=== PATIENT | male | born 1960 | race Caucasian/White ===

== ENCOUNTER → 2023-10-25 10:21 | Outpatient (REF) | payer OTHER, SELFPAY | LOC: RAD 10:21 | PROVIDERS: ATTENDING PHYSICIAN Physician Assistant Medical | DX: R60.0 Localized edema (principal) | CPT/HCPCS: 93970 ==

== ENCOUNTER 2025-01-16 16:50 | Inpatient (IN) | payer BC, SELFPAY ==
[2025-01-16] VITALS (9 sets, daily range): BP systolic 97–121; BP diastolic 67–93; BMI 28.0; BMI 28.7
[2025-01-16] MEDS: NSS 1000 IV ×2 (11:19→19:32)
[2025-01-16 11:24] LABS: % Basophils 0.4 % (0-2); % Eosinophils 1.2 % (0-6); % Immature Granulocytes 0.3 % (0-0.5); % Lymphocytes 22.2 % (20.5-51.1); % Monocytes 17.8 % (1.7-9.3); % Neutrophils 58.1 % (42.2-75.2); Absolute Eosinophils 0.1 10^3/uL (0-0.7); Absolute Lymphocytes 1.5 10^3/uL (1.2-3.4); Absolute Monocytes 1.2 10^3/uL (0.1-0.6); Absolute Neutrophils 3.9 10^3/uL (1.4-6.5); Hematocrit 56.5 % (39.0-52.0); Hemoglobin 19.5 g/dL (13.0-18.0); Mean Corp Hgb Conc. 34.5 g/dL (33.0-37.0); Mean Corpuscular Hgb 29.3 pg (27.0-31.0); Mean Corpuscular Volume 84.8 fL (80.0-94.0); Mean Platelet Volume 9.7 fL (7.4-10.4); Nucleated Red Blood Cells % 0 % (-); Platelet Count 180 10^3/uL (130-400); Red Blood Cell Count 6.66 10^6/uL (4.70-6.10); Red Cell Dist. Width 15.1 % (11.5-14.5); White Blood Cell Count 6.8 10^3/uL (4.8-10.8)
[2025-01-16 11:51] LABS: ALT (SGPT) 27 U/L (0-50); AST (SGOT) 26 U/L (17-59); Albumin 4.6 g/dl (3.5-5.0); Alkaline Phosphatase 52 U/L (38-126); Blood Urea Nitrogen 34 mg/dl (9-20); Calcium 8.9 mg/dl (8.4-10.2); Carbon Dioxide 21 mmol/L (22-30); Chloride 102 mmol/L (98-107); Estimated Creatinine Clearance 36 ml/min; Glucose 119 mg/dl (70-99); Lipase 149 U/L (23-300); Magnesium 2.4 mg/dl (1.6-2.3); Potassium 3.8 mmol/L (3.5-5.1); Sodium 138 mmol/L (135-145); Total Bilirubin 1.1 mg/dl (0.2-1.3); Total Protein 7.9 g/dl (6.3-8.2)
[2025-01-16] MEDS: OMNIPAQUE 50 ML PO (12:18)
--- NOTE | 2025-01-16 12:23 | ED.GENMED ---
History of Present Illness
<Karissa Ruiz PA-C - Last Filed: 01/16/25 14:45>
General
Chief Complaint: Abdominal Symptoms
Source: patient
Exam Limitations: none
Time Seen by Provider: 01/16/25 10:30
Nursing documentation reviewed up to this point in time: agreed with
History of Present Illness
History of Present Illness:
64 Y/O M with h/o colon perforation during colnooscopy years ago outside faciliyt s/p resection partially of colon
chronic lloose bowels
TBI
here with diarrhea significant x 2.5 days
with wtaery stools every 15-30 minutes, nonbloody
with some abdominal cramping prior to episodes
he also had fever to 102
treated last with tylenol yesterday
no fever today
he watches his grandkids who also had GI illness about 10 days ago but he isn't sure what
he has not had recent abx, recent travel
pt started noticing his urine is dark today and looks slightly bloody
he has been able to drink fludis but when he does, he has to have diarrhea
Past History
<CHAD Joshi Last Filed: 01/16/25 14:45>
Past History
ED Past Medical History: HTN, Other (herniated lower back discs, Renal Colic) and Other (Patient had 'some kind of neurological event' in 2011 and was admitted to the hospital with MRI carotid Doppler, etc. and it was never figured out exactly what
happened. Has had no neurological problems since); Negative Asthma, Hypercholesterolemia or NIDDM
ED Past Surgical History: Bowel resection (after perforation from colonoscopy), Orthopedic (right bicep tendon repair) and Other (bilateral inguinal hernia repair)
Social History
Tobacco: Non-smoker
Alcohol: Occasional
Personal:
Living: alone
Employment: Employed
Review of Systems
<Karissa Ruiz PA-C - Last Filed: 01/16/25 14:45>
Review of Systems
Allergies reviewed?: Yes
All Other Systems: Not applicable
Phy Exam
<Karissa Ruiz PA-C - Last Filed: 01/16/25 14:45>
Physical Exam
Physical Exam:
GENERAL: Alert , in no apparent distress, nonotoxic
EYE: pupils equal and reactive
NECK: Supple
ENT: o/p clr dry mouth
CARDIAC: Regular rate and rhythm .
LUNGS: Clear breath sounds bilaterally, no acute respiratory distress, no wheezes/rales/rhonchi
ABDOMEN: Soft, without focal tenderness, no r/g, no cvat, normal bowel sounds
NEUROLOGICAL: Alert and oriented, no focal neuro deficits
SKIN: Warm and dry, skin intact.
MUSCULOSKELETAL: No edema, well perfused. neg dawson's sign
PSYCH: Normal and appropriate interaction.
Course
<Karissa Ruiz PA-C - Last Filed: 01/16/25 14:45>
Orders/Labs/Results
Orders:
Orders
01/16/25 11:04
0.9% Sodium Chloride 1000 ml [Nss] 1,000 ml IV BOLUS
01/16/25 11:11
Complete Blood Count/With Diff Urgent
Comprehensive Metabolic Panel Urgent
Lipase Urgent
Magnesium Urgent
01/16/25 12:08
Iohexol [Omnipaque] See Protocol PO NOW STA
01/16/25 12:09
CT Abd/pel (oral only)-DH Only Urgent
Comment:
Reason For Exam: severe diarrhea, s/p resection years ago
01/16/25 12:20
Stool Culture Urgent
VIVIAN Source: Feces/Stool
Specimen Description:
Date Specimen was Collected: 01/16/25
Time Specimen was Collected: 12:19
01/16/25 12:21
Norovirus by PCR Urgent
VIVIAN Source: Feces/Stool
Specimen Description:
Date Specimen was Collected: 01/16/25
Time Specimen was Collected: 12:19
STOOL [C difficile Antigen & Toxins] Urgent
VIVIAN Source: Feces/Stool
Specimen Description:
Date Specimen was Collected: 01/16/25
Time Specimen was Collected: 12:19
01/16/25 12:51
Urinalysis Reflex To Culture Urgent
Date Specimen was Collected: 01/16/25
Time Specimen was Collected: 12:49
Urine Microscopic Reflex Cult Urgent
Urine Culture Urgent
VIVIAN Source: U
Specimen Description:
Obtained by: Random
Date Specimen was Collected: 01/16/25
Time Specimen was Collected: 12:49
Abnormal Lab Results
01/16/25 01/16/25
11:11 12:51
RBC 6.66 H 10^6/uL
(4.70-6.10)
Hgb 19.5 H g/dL
(13.0-18.0)
Hct 56.5 H %
(39.0-52.0)
RDW 15.1 H %
(11.5-14.5)
Absolute Monos (auto) 1.2 H 10^3/uL
(0.1-0.6)
Monocytes % 17.8 H %
(1.7-9.3)
Carbon Dioxide 21 L mmol/L
(22-30)
BUN 34 H mg/dl
(9-20)
Creatinine 2.1 H mg/dL
(0.7-1.3)
Glucose 119 H mg/dl
(70-99)
Magnesium 2.4 H mg/dl
(1.6-2.3)
Ur Occult Blood Reflex 4+ A
(Negative)
Leukocyte Esterase Rfl 2+ A
(Negative)
Urine RBC 7-10 A /HPF
(0-2)
Urine Bacteria (Reflex) Few A
(Negative)
Urine Albumin (Reflex) 2+ A
(Neg - Trace)
01/16/25 11:11
01/16/25 11:11
Vital Signs
Initial and Last Documented VS:
Initial Vital Signs
Temp Pulse Resp BP Pulse Ox
97.8 F 80 18 115/73 94
01/16/25 09:52 01/16/25 09:52 01/16/25 09:52 01/16/25 09:52 01/16/25 09:52
Last Documented Vital Signs
Temp Pulse Resp BP Pulse Ox
97.8 F 79 25 120/85 95
01/16/25 09:52 01/16/25 14:30 01/16/25 14:30 01/16/25 14:00 01/16/25 14:00
<Manas Michaud PA-C - Last Filed: 01/16/25 15:49>
Orders/Labs/Results
Orders:
Orders
01/16/25 11:04
0.9% Sodium Chloride 1000 ml [Nss] 1,000 ml IV BOLUS
01/16/25 11:11
Complete Blood Count/With Diff Urgent
Comprehensive Metabolic Panel Urgent
Lipase Urgent
Magnesium Urgent
01/16/25 12:08
Iohexol [Omnipaque] See Protocol PO NOW STA
01/16/25 12:09
CT Abd/pel (oral only)-[facility] Only Urgent
Comment:
Reason For Exam: severe diarrhea, s/p resection years ago
01/16/25 12:20
Stool Culture Urgent
VIVIAN Source: Feces/Stool
Specimen Description:
Date Specimen was Collected: 01/16/25
Time Specimen was Collected: 12:19
01/16/25 12:21
Norovirus by PCR Urgent
VIVIAN Source: Feces/Stool
Specimen Description:
Date Specimen was Collected: 01/16/25
Time Specimen was Collected: 12:19
STOOL [C difficile Antigen & Toxins] Urgent
VIVIAN Source: Feces/Stool
Specimen Description:
Date Specimen was Collected: 01/16/25
Time Specimen was Collected: 12:19
01/16/25 12:51
Urinalysis Reflex To Culture Urgent
Date Specimen was Collected: 01/16/25
Time Specimen was Collected: 12:49
Urine Microscopic Reflex Cult Urgent
Urine Culture Urgent
VIVIAN Source: U
Specimen Description:
Obtained by: Random
Date Specimen was Collected: 01/16/25
Time Specimen was Collected: 12:49
Abnormal Lab Results
01/16/25 01/16/25
11:11 12:51
RBC 6.66 H 10^6/uL
(4.70-6.10)
Hgb 19.5 H g/dL
(13.0-18.0)
Hct 56.5 H %
(39.0-52.0)
RDW 15.1 H %
(11.5-14.5)
Absolute Monos (auto) 1.2 H 10^3/uL
(0.1-0.6)
Monocytes % 17.8 H %
(1.7-9.3)
Carbon Dioxide 21 L mmol/L
(22-30)
BUN 34 H mg/dl
(9-20)
Creatinine 2.1 H mg/dL
(0.7-1.3)
Glucose 119 H mg/dl
(70-99)
Magnesium 2.4 H mg/dl
(1.6-2.3)
Ur Occult Blood Reflex 4+ A
(Negative)
Leukocyte Esterase Rfl 2+ A
(Negative)
Urine RBC 7-10 A /HPF
(0-2)
Urine Bacteria (Reflex) Few A
(Negative)
Urine Albumin (Reflex) 2+ A
(Neg - Trace)
01/16/25 11:11
01/16/25 11:11
Vital Signs
Initial and Last Documented VS:
Initial Vital Signs
Temp Pulse Resp BP Pulse Ox
97.8 F 80 18 115/73 94
01/16/25 09:52 01/16/25 09:52 01/16/25 09:52 01/16/25 09:52 01/16/25 09:52
Last Documented Vital Signs
Temp Pulse Resp BP Pulse Ox
97.8 F 79 25 120/85 95
01/16/25 09:52 01/16/25 14:30 01/16/25 14:30 01/16/25 14:00 01/16/25 14:00
<Karissa Ruiz PA-C - Last Filed: 01/16/25 14:45>
MDM/Problems Addressed
Differential Diagnosis Includes:
gastroenteritis, colitis, uti, dehydartion
MDM/Problems Addressed:
64-year-old male status post a previous partial colon resection secondary to a perforated colon from occult colonoscopy presents with 2-1/2 days of loose bowels, frequent diarrhea, moderate volume, nonbloody every 15 to 20 minutes, specifically
after drinking liquids. He feels dehydrated and slightly weak. He gets cramps in his abdomen before he has to move his bowels that resolved. He did have a fever 102. There has been no recent travel or antibiotics. His grandkids were sick with a
GI illness just less than 2 weeks ago and he watches them.
Today he noticed some gross hematuria/his urine was dark in color.
On exam the patient is nontoxic-appearing, appears dehydrated, has no focal tenderness, midline vertical abdominal incision is well-healed.
Laboratory findings positive for an SCOTT, he appears hemoconcentrated
Urine positive for RBCs and blood
Pending CT scan, likely will require IV hydration and admission if the patient agrees
<Manas Michaud PA-C - Last Filed: 01/16/25 15:49>
*Critical Care Note
Total Time (30-74mins, 75-104mins- exclusive of procedures): Not Applicable
<Manas Michaud PA-C - Last Filed: 01/16/25 15:49>
Update Note
Update Note:
Received care of patient pending CT scan. CT scan negative for acute findings. Patient is hemoconcentrated. His creatinine is 2.1 and he has had at least several episodes of diarrhea while here. Given ongoing diarrhea hemoconcentration and
creatinine elevation will keep in hospital for acute dehydration.
ED Attending Note
<Karissa Ruiz PA-C - Last Filed: 01/16/25 14:45>
-
Portions of this chart may have been created with voice recognition software.� Occasional wrong word or��sound alike� substitutions may have occurred due to the inherent limitations of voice recognition software.
Discharge Plan
Departure
Patient Disposition: Admit
Date of Disposition: 01/16/25
Time of Disposition: 15:49
Presentation/result/management discussed w/ accepting MD/DO: Hospitalist
Discharge Problem:
Acute dehydration
Prescriptions:
No Action
omeprazole magnesium [Prilosec OTC] 20 MG tablet,delayed release (DR/EC)
20 mg PO DAILY
testosterone [AndroGel] 75 GM gel in metered-dose pump
2 pump topical DAILY
Multivitamin
1 tab PO DAILY
tamsulosin 0.4 MG capsule
0.4 mg PO HS
hydrochlorothiazide 25 MG tablet
25 mg PO DAILY
Allopurinol
100 mg PO DAILY
tadalafil [Cialis] 10 MG tablet
10 mg PO HS
meloxicam [Mobic] 15 MG tablet
15 mg PO HS
bismuth subsalicylate [[place] Bismuth] 1 TABLET tablet,chewable
2 tab PO TIDPRN PRN (Reason: diarrhea)
phenazopyridine 200 MG tablet
200 mg PO BID 4 Days Qty: 8 0RF
sulfamethoxazole-trimethoprim 1 TABLET tablet
1 tab PO BID 4 Days Qty: 8 0RF
Rx Instructions:
start Bactrim 09/26/21
Referrals:
Kilo Lewis, DO [Family Provider] -
Interventions
Interventions:
*Risk Screen - Suicide Last Done: 01/16/25 09:52
*General Assessment Last Done: 01/16/25 09:52
*Neglect/Abuse Screening Last Done: 01/16/25 09:52
*ED- Fall Risk Assessment Last Done: 01/16/25 11:24
*ED COVID-19 Vaccine History Last Done: 01/16/25 11:24
OL-Ybnbdr-Sbkqwzelyc Assessment Last Done: 01/16/25 11:24
Discharge Date and Time
Print Language: [place]
[2025-01-16 13:18] LABS: Urine Albumin 2+ (Neg - Trace); Urine Bilirubin Negative (Negative); Urine Character Clear (Clear); Urine Color Amber; Urine Glucose Negative (Negative); Urine Ketone Negative (Negative); Urine Leukocyte 2+ (Negative); Urine Nitrite Negative (Negative); Urine Occult Blood 4+ (Negative); Urine Urobilinogen Negative (Neg - 1+)
[2025-01-16 14:19] LABS: Urine Bacteria Few (Negative)
--- NOTE | 2025-01-16 15:50 | HPS.HSE ---
Family Physician
-
Family Physician: Kilo Lewis
Chief Complaint
-
watery diarrhea
History of Present Illness
64 Y/O M with h/o colon perforation during colonoscopy years ago outside faciliyt s/p resection partially of colon. GOUT, HTN, GERD presented to us with loose watery stool since Tuesday night. patient stated epigastric pain. he had fever of 102 since
Tuesday to Tuesday night. Patient denied headache, dizzy. Patient stated some chest pressure. Denied short of breath. Denied nausea or vomiting. Patient stated dark urine. Stated some dysuria. Denied hematuria. Patient denied any recent
travel. He denied any sick contact. Patient denied any antibiotics.
CT abdomen pelvis with no acute findings. Norovirus negative. Stool C. difficile antigen positive, toxin negative. stool culture sent from ER. received fluids.
Medical History
Past Medical History
Past Medical History: Reports Other
Additional Past Medical History:
Hypertension, BPH, gout, kidney stone, bladder calculi,
Past Surgical History: Reports Other
Additional Past Surgical History:
bowel resection
b/l inguinal hernia surgery
bicep tendon repair
carpel tunnel release
kidney stone extraction
TURP
Social History
Tobacco: Non-smoker
Alcohol: Occasional
Drug: None
Personal: Single
Living: Alone
Family History
Family History: Not pertinent
Allergies / Home Medications
Allergies reflects when Allergies were last updated in get[facility].
Home Medications with original date entered in get[facility]
Allergy/Medication List:
Allergies
Allergy/AdvReac Type Severity Reaction Status Date / Time
honey Allergy Anaphylaxis Verified 01/16/25 09:52
lisinopril Allergy bells Verified 01/16/25 09:52
palsy like
reaction
demeclocycline AdvReac Vomiting Verified 01/16/25 09:52
[From Declomycin]
Home Medications
Multivitamin 1 tab PO DAILY Supplement 03/07/18
omeprazole magnesium 20 mg tablet,delayed release (Prilosec OTC) 20 mg PO DAILY Urinary issue 03/07/18
testosterone (AndroGel) 2 pump topical DAILY Hormonal agent 03/07/18
hydrochlorothiazide 25 mg tablet 25 mg PO DAILY Fluid retention/Swelling 09/19/19
tamsulosin 0.4 mg capsule 0.4 mg PO HS Urinary issue 09/19/19
Allopurinol 100 mg PO DAILY 09/22/21
bismuth subsalicylate 262 mg chewable tablet ([place] Bismuth) 2 tab PO TIDPRN PRN diarrhea 09/22/21
meloxicam 15 mg tablet (Mobic) 15 mg PO HS 09/22/21
tadalafil 10 mg tablet (Cialis) 10 mg PO HS 09/22/21
phenazopyridine 200 mg tablet 200 mg PO BID 4 days #8 tabs 09/25/21
sulfamethoxazole 800 mg-trimethoprim 160 mg tablet 1 tab PO BID 4 days #8 tabs 09/25/21
Review of Systems
-
Constitutional: Reports No Symptoms
EENT: Reports No Symptoms
Respiratory: Reports No Symptoms
Cardiac: Reports No Symptoms
Abdomen/GI: Reports Abdominal Pain and Diarrhea
: Reports Dark Urine
Musculoskeletal: Reports No Symptoms
Skin: Reports No Symptoms
Neurological: Reports No Symptoms
Endocrine: Reports No Symptoms
Hematologic/Lymphatic: Reports No Symptoms
Psych: Reports No Symptoms
Physical Exam
Vital Signs
Vital Signs
Temp Pulse Resp BP Pulse Ox
97.8 F 79 25 120/85 95
01/16/25 09:52 01/16/25 14:30 01/16/25 14:30 01/16/25 14:00 01/16/25 14:00
Physical Exam
General: Well Developed, Well Nourished and No Apparent Distress
HEENT: NormoCephalic, Moist mucous membranes and Atraumatic
Respiratory: Clear
Cardiac: S1/S2 and Regular Rhythm; No Murmur or Rub
GI: Soft, Non Tender, Non Distended and Normal Bowel Sounds; No Organomegaly
Rectal: Deferred by Provider
Musculoskeletal: No Clubbing, No Cyanosis and No Edema
Skin: No Rash
Neuro: AO x 3 and Nonfocal/grossly intact
Psych: Calm
Laboratory Results
-
01/16/25 11:11
01/16/25 11:11
Laboratory Results
Total Bilirubin 1.1 mg/dl (0.2-1.3) 01/16/25 11:11
AST 26 U/L (17-59) 01/16/25 11:11
ALT 27 U/L (0-50) 01/16/25 11:11
Alkaline Phosphatase 52 U/L (38-126) 01/16/25 11:11
Lipase 149 U/L (23-300) 01/16/25 11:11
Data Reviewed
-
CT Scan: Report Reviewed by me
Lab Data: Labs Reviewed by me
Impression/Plan
-
# Acute dehydration with ongoing diarrhea likely C diff
# Acute kidney injury likely from dehydration
- Creatinine 2.1
- norovirus negative
-C diff antigen positive, toxin negative
- CT abdomen pelvis with impression of multiple low-attenuation foci in the liver with Hounsfield units confirming cysts. There is diverticulosis but no evidence of diverticulitis
-oral vanco and Flagyl
- Tylenol as needed for fever or pain
# Hemoconcentration likely from dehydration
- Hemoglobin 19
- Fluids continued
- CBC in a.m.
# Gout
- Allopurinol continued
# Essential hypertension
- Hold hydrochlorothiazide due to SCOTT
# GERD
- PPI
# BPH
- Flomax
# DVT prophylaxis
- SCDs
# CODE STATUS
- Full code
--- NOTE | 2025-01-16 16:30 | W.PN.UPDATE ---
Update Note
Progress Note Update
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
64-year-old male past medical history of hypertension, herniated disc, colon perforation status post bowel resection, GERD, BPH, uric acid nephrolithiasis on allopurinol, presenting with severe watery diarrhea with blood for 3 days, abdominal
cramping.� Fever 102.� No recent antibiotics or travel.� Urine is bloody as well without retention or clots though he has had this before secondary to renal stones and bladder stone.� No urinary burning or frequency.� No flank pain.
Never had C. difficile before.
Labs unremarkable apart from creatinine of 2.1.� CT abdomen pelvis shows multiple low-attenuation foci in the liver confirming cysts.� Urinalysis shows hematuria but findings not particularly suggestive of UTI.
Patient is positive for C. difficile antigen but toxin negative.
Patient with likely C. difficile colitis given bloody diarrhea.� No clear triggers such as antibiotic use or immunosuppression.� Also with SCOTT secondary to hypovolemia and hematuria likely due to BPH/history of nephrolithiasis.
N.p.o., IV fluids, oral vancomycin/IV Flagyl.� Stool culture pending.� Outpatient follow-up with urology.
[2025-01-16] MEDS: COREG 25 MG PO (19:32)
[2025-01-16] MEDS: FLAGYL 500 MG 100 IV (19:41)
[2025-01-16] MEDS: FIRVANQ 250 MG PO (19:41)
[2025-01-16] MEDS: FLOMAX 0.4 MG PO (21:15)
[2025-01-17] MEDS: FIRVANQ 250 MG PO ×2 (00:54→06:33)
[2025-01-17] MEDS: NSS 1000 IV ×3 (00:55→21:53)
[2025-01-17] MEDS: FLAGYL 500 MG 100 IV (03:54)
[2025-01-17 07:31] LABS: Hematocrit 50.9 % (39.0-52.0); Hemoglobin 17.6 g/dL (13.0-18.0); Mean Corp Hgb Conc. 34.6 g/dL (33.0-37.0); Mean Corpuscular Hgb 29.3 pg (27.0-31.0); Mean Corpuscular Volume 84.8 fL (80.0-94.0); Mean Platelet Volume 9.5 fL (7.4-10.4); Platelet Count 172 10^3/uL (130-400); Red Cell Dist. Width 14.3 % (11.5-14.5); White Blood Cell Count 5.7 10^3/uL (4.8-10.8)
[2025-01-17 07:54] LABS: Blood Urea Nitrogen 38 mg/dl (9-20); Calcium 7.6 mg/dl (8.4-10.2); Carbon Dioxide 20 mmol/L (22-30); Chloride 107 mmol/L (98-107); Estimated Creatinine Clearance 47 ml/min; Glucose 76 mg/dl (70-99); Potassium 3.7 mmol/L (3.5-5.1); Sodium 138 mmol/L (135-145); eGFR 47.82
[2025-01-17 08:00] VITALS: BP 114/68
[2025-01-17] MEDS: COREG 25 MG PO ×2 (08:23→20:23)
[2025-01-17] MEDS: ZYLOPRIM 100 MG PO (08:23)
[2025-01-17] MEDS: PROTONIX 40 MG PO (08:23)
--- NOTE | 2025-01-17 09:04 | W.PN.HOSP.TC ---
Addendum entered and electronically signed by Balbir Cervantes MD 01/17/25 23:38:
Attending Addendum-
I saw and evaluated the patient. I reviewed the resident�s note and agree with findings and plan as documented in the resident�s note. Sub: No diarrhea today. States its improved after starting po vanco. Denies dark or BRBPR. Has had some hematuria
but non today. Full 12 point ROS reviewed and negative except as documented Exam: Vitals reviewed in chart GEN-NAD heart RRR lungs clear abd soft NT ND pos BS LE no edema
Plan:
# Acute dehydration with ongoing diarrhea possibly C diff
# Acute kidney injury likely from dehydration
- Creatinine 2.1->1.6
- cont IVF
- norovirus negative
- stool cx- neg thus far
- C diff antigen positive, toxin negative - had diarrhea and decreased after start of PO vanco
- CT abdomen pelvis with impression of multiple low-attenuation foci in the liver with Hounsfield units confirming cysts. There is diverticulosis but no evidence of diverticulitis
- DC IV flagyl decrease po vanco
- will continue 10 day course of PO vanco
- Tylenol as needed for fever or pain
- advance diet
# Hemoconcentration likely from dehydration
- Fluids continued
- CBC in a.m.
# Hematuria
- will need follow up as OP with uro
# Gout
- Allopurinol continued
# Essential hypertension
- Hold hydrochlorothiazide due to dehydration
# GERD
- PPI possible DC
# BPH
- Flomax
# DVT prophylaxis
- SCDs
# CODE STATUS
- Full code-> DNR
Dispo DC in am
ACP
Patient consented to discuss, was alone, time spent explanation of advance directives, changes in health status, patient�s health care wishes if the patient becomes unable to make health decisions, goals of care, code status, and prognosis code
status changed to DNR after discussion- 16 minutes
Time spent coordinating care, review of plan of care with resident, personally reviewed previous records in EMR, med rec, labs, radiology, d/w nursing, family total time documented is exclusive of any additional time listed that was spent in advance
care planning discussion -�52 minutes
Original Note:
Today's Communication/Plan
-
Follow blood culture urine culture
Trend serum creatinine
Trend hemoglobin and hematocrit
Send LDH, peripheral blood smear, reticulocyte count
Assessment / Plan
Assessment / Plan
Impression
Patient is a 64-year-old male with past medical history of bowel resection for perforated colon secondary to colonoscopy, hypertension, gout, GERD, kidney and bladder stones who presented to emergency with complaint of watery stools for last 3 days.
1 episode of fever. Admitted with working diagnosis of dehydration secondary to diarrhea.
Assessment/plan
1. Diarrhea
Infectious versus toxin mediated versus hemolytic uremic syndrome
Grandchildren-sick contacts
Had dinner outside-([employer]) prior to start of diarrhea
No recent hospitalization, no recent antibiotics, no recent travel
On IV fluids -no signs of dehydration today
Follow blood culture, and stool culture
Continue oral vancomycin
Advance diet as tolerated
2. SCOTT secondary to dehydration/HUS
On admission, patient's serum creatinine 2
On IV fluids-serum creatinine trending down
Keep hydrating, trend serum creatinine
3. Polycythemia
On admission patient had a hemoglobin of 19.5 with a hematocrit of 56.5 suggesting dehydration
Improved -downtrending with hydration
Continue to monitor
4. Hematuria?
Patient had anastacio-colored urine with 7-10 RBCs
2+ albumin in urine
Platelet count is downtrending
Elevated serum creatinine
Evaluate for hemolysis with LDH, peripheral blood smear, reticulocyte count
Other medical conditions
Essential hypertension-hold hydrochlorothiazide, continue carvedilol
Gout-continue allopurinol
GERD-continue PPI
BPH-continue home meds as able
DVT prophylaxis-SCD
Code status-DNR
Anticipated Discharge: 24 - 48 hours
Subjective/Interval History
-
Date of Service: January 17, 2025
Patient feeling fine,Last bowel movement yesterday, has remained afebrile over the last 3 days
Objective Data
-
Labs:
Laboratory Results
01/17/25
06:35
WBC 5.7
Hgb 17.6
Hct 50.9
Plt Count 172
Sodium 138
Potassium 3.7
Chloride 107
Carbon Dioxide 20 L
BUN 38 H
Creatinine 1.6 H
Glucose 76
Calcium 7.6 L
Vital Signs:
Vital Signs
Temp Pulse Resp BP Pulse Ox
98 F 69 16 114/68 95
01/17/25 08:00 01/17/25 08:23 01/17/25 08:00 01/17/25 08:23 01/17/25 08:00
I&O
01/16/25 01/17/25 01/18/25
06:59 06:59 06:59
Intake Total 1325 / 1325
Balance 1325 / 1325
Review of Systems
-
Constitutional: Reports Weight Loss (13 pounds)
Abdomen/GI: Reports Diarrhea
Genitourinary: Reports Bleeding
Musculoskeletal: Reports Joint Pain and Muscle Pain
Physical Exam
-
General: No Apparent Distress, Comfortable and Conversant
HEENT: Normocephalic, Atraumatic and Moist Mucous Membranes
Respiratory: Clear to Auscultation and Other (No wheezes,rales or ronchi)
Cardiac: Regular Rhythm, S1/S2 and Other (No murmurs rubs or gallops)
GI: Soft, Nontender, Nondistended and Normal Bowel Sounds
Musculoskeletal: No Clubbing, No Cyanosis and No Edema
Skin: Warm and Dry
Neuro: Awake, Oriented and No Motor Deficits
Psych: Calm
[2025-01-17] MEDS: FIRVANQ 125 MG PO ×3 (13:04→23:42)
--- NOTE | 2025-01-17 13:09 | CM ---
Patient seen at bedside
PMH: bowel resection for perforated colon secondary to colonoscopy, hypertension, gout, GERD
Lives in an aparment alone, 3 flights of stairs
PLOF: Independent
DME: crutches
Denies VN/Rehab in 2014
PCP: Kilo Lewis
[facility]
PLAN: home, no anticipated needs
drove self to hospital
[2025-01-17 16:00] VITALS: BP 112/73
[2025-01-17] MEDS: FLOMAX 0.4 MG PO (20:23)
[2025-01-17 23:15] VITALS: BP 104/59
[2025-01-18] MEDS: FIRVANQ 125 MG PO ×2 (05:08→12:28)
[2025-01-18 06:44] LABS: % Basophils 0.2 % (0-2); % Eosinophils 1.6 % (0-6); % Immature Granulocytes 0.2 % (0-0.5); % Lymphocytes 31.3 % (20.5-51.1); % Monocytes 12.7 % (1.7-9.3); Absolute Eosinophils 0.1 10^3/uL (0-0.7); Absolute Lymphocytes 1.6 10^3/uL (1.2-3.4); Absolute Monocytes 0.6 10^3/uL (0.1-0.6); Absolute Neutrophils 2.7 10^3/uL (1.4-6.5); Hematocrit 45.8 % (39.0-52.0); Hemoglobin 15.7 g/dL (13.0-18.0); Mean Corp Hgb Conc. 34.3 g/dL (33.0-37.0); Mean Corpuscular Hgb 29.2 pg (27.0-31.0); Mean Corpuscular Volume 85.3 fL (80.0-94.0); Mean Platelet Volume 9.7 fL (7.4-10.4); Nucleated Red Blood Cells % 0 % (-); Platelet Count 164 10^3/uL (130-400); Red Blood Cell Count 5.37 10^6/uL (4.70-6.10); Red Cell Dist. Width 14.4 % (11.5-14.5)
[2025-01-18 07:15] VITALS: BP 112/69
[2025-01-18 07:19] LABS: ALT (SGPT) 17 U/L (0-50); AST (SGOT) 20 U/L (17-59); Albumin 3.4 g/dl (3.5-5.0); Alkaline Phosphatase 40 U/L (38-126); Blood Urea Nitrogen 21 mg/dl (9-20); Calcium 7.2 mg/dl (8.4-10.2); Carbon Dioxide 19 mmol/L (22-30); Chloride 112 mmol/L (98-107); Estimated Creatinine Clearance 68 ml/min; Glucose 83 mg/dl (70-99); Magnesium 2.4 mg/dl (1.6-2.3); Potassium 3.5 mmol/L (3.5-5.1); Sodium 142 mmol/L (135-145); Total Bilirubin 0.9 mg/dl (0.2-1.3); Total Protein 5.7 g/dl (6.3-8.2); eGFR > 60.00
[2025-01-18] MEDS: ZYLOPRIM 100 MG PO (08:05)
[2025-01-18] MEDS: COREG 25 MG PO (08:05)
[2025-01-18] MEDS: PROTONIX 40 MG PO (08:05)
[2025-01-18 08:30] VITALS: BP 144/88; PULSE 66; O2SAT 96
--- NOTE | 2025-01-18 08:40 | PTOTSP ---
pt currently requires no assistance to complete simple ADLs, functional transfers, ambulation. no acute OT needs identified, will sign off.
--- NOTE | 2025-01-18 10:19 | PTOTSP ---
Patient demonstrates safe and independent ambulation and stairs, no skilled physical therapy needs, will sign off.
--- NOTE | 2025-01-18 13:24 | W.PN.HOSP.TC ---
Addendum entered and electronically signed by Balbir Cervantes MD 01/18/25 22:32:
Attending Addendum-
I saw and evaluated the patient. I reviewed the resident�s note and agree with findings and plan as documented in the resident�s note. Sub: continues to have loose bms but improved and chronic. wants to go home. Denies dark or BRBPR. no further
hematuria. Full 12 point ROS reviewed and negative except as documented Exam: Vitals reviewed in chart GEN-NAD heart RRR lungs clear abd soft NT ND pos BS LE no edema
Plan:
# Acute dehydration with ongoing diarrhea likely symptomatic uncomplicated C diff
# Acute kidney injury likely from dehydration
- Creatinine 2.1->1.6->1.1
- norovirus negative
- stool cx- neg thus far
- C diff antigen positive, toxin negative - had diarrhea and decreased after start of PO vanco
- CT abdomen pelvis with impression of multiple low-attenuation foci in the liver with Hounsfield units confirming cysts. There is diverticulosis but no evidence of diverticulitis
- DC IV flagyl decreased po vanco
- will continue 10 day course of PO vanco
- Tylenol as needed for fever or pain
- advance diet
# Hemoconcentration likely from dehydration
- Fluids continued
- CBC in a.m.
# Hematuria
- will need follow up as OP with uro
# Gout
- Allopurinol continued
# Essential hypertension
- Hold hydrochlorothiazide due to dehydration
# GERD
- PPI possible DC
# BPH
- Flomax
# DVT prophylaxis
- SCDs
# CODE STATUS
- Full code-> DNR
Dispo DC home
Time spent coordinating care, DC planning, review of DC plan of care with resident, transition of care, review of records, med rec/scripts sent electronically, consults, notes, d/w consultants, nursing, family, and CM� 31 mins
Original Note:
Today's Communication/Plan
-
Plan discharge
Assessment / Plan
Assessment / Plan
Impression
Patient is a 64-year-old male with past medical history of bowel resection for perforated colon secondary to colonoscopy, hypertension, gout, GERD, kidney and bladder stones who presented to emergency with complaint of watery stools for last 3 days.
1 episode of fever. Admitted with working diagnosis of dehydration secondary to diarrhea.
Assessment/plan
1. Diarrhea secondary to uncomplicated C. difficile colitis
Watery diarrhea since 5 days, C. difficile antigen positive, toxin negative
Responding well to oral vancomycin, stool consistency returning to his baseline, stool frequency back to baseline given his bowel resection secondary to colon perforation/during colonoscopy
No recent hospitalization, no recent antibiotics, no recent travel
Norovirus negative
Blood culture negative, urine culture negative, stool culture negative for Salmonella Shigella and Shiga toxin
Continue oral vancomycin
Off IV fluids, currently on low residue diet
Advance diet as tolerated
2. SCOTT secondary to dehydration
Hydration status improved
Serum creatinine back to baseline
3. Hemoconcentration secondary to dehydration
With hydration status improving, hemoglobin and hematocrit downtrending and returning to baseline
Continue to monitor
4. Hematuria?
Patient had anastacio-colored urine with 7-10 RBCs
Could be secondary to dehydration
Over last 24 hours he had clear urine with no blood
Follow-up on outpatient basis with PCP
Other medical conditions
Essential hypertension-hold hydrochlorothiazide, continue carvedilol
Gout-continue allopurinol
GERD-continue PPI
BPH-continue home meds as able
DVT prophylaxis-SCD
Code status-DNR
Anticipated Discharge: Today
Subjective/Interval History
-
Date of Service: January 18, 2025
Patient still having some loose stools, but it is normal for his baseline since his colon resection for perforated colon following colonoscopy
Feels well, tolerating low residue diet
Objective Data
-
Labs:
Laboratory Results
01/18/25
05:50
WBC 5.0
Hgb 15.7
Hct 45.8
Plt Count 164
Sodium 142
Potassium 3.5
Chloride 112 H
Carbon Dioxide 19 L
BUN 21 H
Creatinine 1.1
Glucose 83
Calcium 7.2 L
Total Bilirubin 0.9
AST 20
ALT 17
Alkaline Phosphatase 40
Vital Signs:
Vital Signs
Temp Pulse Resp BP Pulse Ox
98.5 F 66 18 112/69 96
01/18/25 07:15 01/18/25 08:05 01/18/25 07:15 01/18/25 08:05 01/18/25 10:58
I&O
01/17/25 01/18/25 01/19/25
06:59 06:59 06:59
Intake Total 1325 / 1325 3625 / 3625
Balance 1325 / 1325 3625 / 3625
Review of Systems
-
All other systems: Reviewed and negative
Physical Exam
-
General: Well Developed, Well Nourished, No Apparent Distress, Comfortable and Conversant
HEENT: Normocephalic, Atraumatic and Moist Mucous Membranes
Respiratory: Clear to Auscultation and Other (No wheezes rales or rhonchi)
Cardiac: Regular Rhythm, S1/S2 and Other (No murmurs rubs or gallops)
GI: Soft, Nontender, Nondistended and Normal Bowel Sounds
Musculoskeletal: No Clubbing, No Cyanosis and No Edema
Skin: Warm and Dry
Neuro: Awake, Alert and Oriented
Psych: Calm
--- NOTE | 2025-01-18 14:27 | CM ---
CM following re: discharge planning.
Reviewed pt's chart, met with pt.
PT and OT evaluations noted - pt has no skilled PT/OT needs, independent with functional ability.
Discharge order noted. Pt is aware, expressed his agreement with discharge and pt stated he will drive home, his car parked on the parking lot.
D/C plan: home no after care VN needs. Pt will drive home.
--- NOTE | 2025-01-18 17:26 | W.DCSUMMARY ---
Addendum entered and electronically signed by Balbir Cervantes MD 01/18/25 22:33:
Read, reviewed, and agree. See same day progress note for additional details.
Dane Cervantes MD
Original Note:
Documented by User: Nino Lizarraga MD, Resident 01/18/25 17:39
Discharge Summary
Discharge Data
Date of Admission: 01/16/25
Date of Discharge: 01/18/25
-
Pending Results: No
Hospital Course
Discharging Physician :
Balbir Cervantes
Disposition :
Home
Primary care physician :
Kilo Lewis DO
Principal Discharge diagnosis :
Diarrhea secondary to uncomplicated C. difficile colitis
SCOTT secondary to dehydration
Hemoconcentration secondary to dehydration
Chronic Discharge diagnosis :
BPH
GERD
Gout
Essential hypertension
History of bowel resection secondary to colon perforation during colonoscopy
Hospital Course :
Patient is a 64-year-old male with past medical history of bowel resection for perforated colon secondary to colonoscopy, hypertension, gout, GERD, kidney and bladder stones who presented to emergency with complaint of watery stools for last 3 days.
1 episode of fever. Admitted with working diagnosis of diarrhea secondary to uncomplicated C. difficile colitis
1. Diarrhea
Grandchildren-possible sick contacts
No recent hospitalization, no recent antibiotics, no recent travel
Workup showed positive C. difficile antigen, toxin negative-uncomplicated without any toxic megacolon
Responded well to oral vancomycin
Diet advanced as tolerated, on discharge patient on low residue diet, continue low residue diet for few days and then eventually resume regular diet
2. SCOTT secondary to dehydration
Serum creatinine 2.1 on admission, baseline is 1
Responded well to hydration, returned to baseline
3. Hemoconcentration secondary to dehydration
On admission patient had a hemoglobin of 19.5 with a hematocrit of 56.5 suggesting dehydration
Improved with hydration
4. Hematuria?
Patient had anastacio-colored urine with 7-10 RBCs
2+ albumin in urine
Self resolved
Follow-up on outpatient basis with PCP
Important imaging findings :
CT Abdomen/Pelvis 01/16/2025
IMPRESSION:
1. There are multiple low-attenuation foci in the liver with Hounsfield units confirming cysts.
2. There is diverticulosis but no evidence of diverticulitis
Important lab findings
Blood culture-no growth at 48 hours
Urine culture-no significant growth
Negative for norovirus
Positive C. difficile antigen, toxin negative
Stool culture negative for compile a better GI genie Salmonella Shigella, Shiga toxin producing E. coli
Discharge Plan
-
Patient Disposition: Home (Routine Discharge)
Discharge Diagnosis/Procedures: Diarrhea secondary to uncomplicated C. difficile colitis
SCOTT secondary to dehydration
Hemoconcentration secondary to dehydration
Condition: Fair
Diet: Low Residue
Additional Diets: Low residue diet for next few days and then can eventually resume regular diet
Activity: As tolerated
Driving Restrictions: As prior to admission
Bathing Restrictions: OK to Shower
Referrals:
Kilo Lewis, DO [Family Provider] - in less than 1 week
Prescriptions:
New
vancomycin 125 mg capsule
125 mg PO Q6H 7 Days Qty: 30 0RF
Continued
omeprazole magnesium [Prilosec OTC] 20 MG tablet,delayed release (DR/EC)
20 mg PO DAILY
testosterone [AndroGel] 75 GM gel in metered-dose pump
2 pump topical DAILY
tamsulosin 0.4 MG capsule
0.4 mg PO HS
hydrochlorothiazide 25 MG tablet
25 mg PO DAILY
tadalafil [Cialis] 10 MG tablet
20 mg PO HS
carvedilol [Coreg] 25 mg Tablet
25 mg PO BID
allopurinol 100 mg Tablet
100 mg PO DAILY
Discharge Orders:
Discharge Patient (As Directed); Ordered 01/18/25
Ordered By: Nino Lizarraga
Discharge Date and Time
Discharge Date/Time: 01/18/25 14:54
Print Language: CYMRAES

Documented by User: Balbir Cervantes MD 01/18/25 22:30
Discharge Summary
Discharge Data
Date of Admission: 01/16/25
Date of Discharge: 01/18/25
Discharge Plan
-
Patient Disposition: Home (Routine Discharge)
Discharge Diagnosis/Procedures: Diarrhea secondary to uncomplicated C. difficile colitis
SCOTT secondary to dehydration
Hemoconcentration secondary to dehydration
Condition: Fair
Diet: Low Residue
Additional Diets: Low residue diet for next few days and then can eventually resume regular diet
Activity: As tolerated
Driving Restrictions: As prior to admission
Bathing Restrictions: OK to Shower
Referrals:
Kilo Lewis, DO [Family Provider] - in less than 1 week
Prescriptions:
New
vancomycin 125 mg capsule
125 mg PO Q6H 7 Days Qty: 30 0RF
Continued
omeprazole magnesium [Prilosec OTC] 20 MG tablet,delayed release (DR/EC)
20 mg PO DAILY
testosterone [AndroGel] 75 GM gel in metered-dose pump
2 pump topical DAILY
tamsulosin 0.4 MG capsule
0.4 mg PO HS
hydrochlorothiazide 25 MG tablet
25 mg PO DAILY
tadalafil [Cialis] 10 MG tablet
20 mg PO HS
carvedilol [Coreg] 25 mg Tablet
25 mg PO BID
allopurinol 100 mg Tablet
100 mg PO DAILY
Discharge Orders:
Discharge Patient (As Directed); Ordered 01/18/25
Ordered By: Nino Lizarraga
Discharge Date and Time
Discharge Date/Time: 01/18/25 14:54
Print Language: CYMRAES
== END 2025-01-18 14:54 | disposition home or self-care (01) | DRG 372 ==
LOC: 2 NORTH 16:50
PROVIDERS: Physician Assistant; Registered Nurse; ADMITTING PHYSICIAN Hospitalist; ATTENDING PHYSICIAN Family Medicine; EMERGENCY PHYSICIAN Emergency Medicine; FAMILY PHYSICIAN Family Medicine
DX: A04.72 Enterocolitis due to Clostridium difficile, not specified as recurrent (principal); N17.9 Acute kidney failure, unspecified; I10 Essential (primary) hypertension; Z66 Do not resuscitate; M10.9 Gout, unspecified; K21.9 Gastro-esophageal reflux disease without esophagitis; E86.0 Dehydration; N40.0 Benign prostatic hyperplasia without lower urinary tract symptoms; R71.8 Other abnormality of red blood cells; Z90.49 Acquired absence of other specified parts of digestive tract; R31.0 Gross hematuria
CPT/HCPCS: 74176; 80048; 80053; 81003; 81015; 83690; 83735; 85025; 85027; 87040; 87045; 87046; 87077; 87086; 87324; 87427; 87449; 87798; 96360; 97165; 99285

== ENCOUNTER → 2025-04-18 10:28 | Outpatient (REF) | payer MEDICARE, SELFPAY | LOC: RAD 10:28 | PROVIDERS: ATTENDING PHYSICIAN Family Medicine | DX: R05.3 Chronic cough (principal) | CPT/HCPCS: 71046 ==